=== PATIENT | female | born 1945 | race Two or more races ===

== ENCOUNTER 2017-01-10 23:52 | Inpatient (IN) | payer MEDICARE, BC ==
[~2017-01-10] VITALS: Ht 170.2 cm; Wt 44.7 kg
[2017-01-11 03:30] VITALS: BP 156/83
[2017-01-11] MEDS ORDERED: ACETAMINOPHEN 325 MG TABLET PO PRN (03:30)
[2017-01-11] MEDS ORDERED: LORAZEPAM 0.5 MG TABLET PO PRN (03:30)
[2017-01-11] MEDS ORDERED: MAG HYDROX/AL HYDROX/SIMETH 30 ML UDC PO PRN (03:30)
[2017-01-11] MEDS ORDERED: MAGNESIUM HYDROXIDE 30 ML UDC PO PRN (03:30)
[2017-01-11] MEDS ORDERED: PARO10TA3 PO (03:48)
[2017-01-11] MEDS ORDERED: LORA2TAB PO (03:48)
[2017-01-11] MEDS ORDERED: TEMA15CA PO (03:48)
[2017-01-11] MEDS ORDERED: TRAZ150T75 PO (03:48)
--- NOTE | 2017-01-11 04:00 | NUR ---
GPS LIFE ENRICHMENT SPECIALIST NOTES: ADMISSION OF A 71YO FEMALE FROM [facility] ON 5150 HOLD FOR DTS AND GD. PER HOLD, THE PATIENT STATED, "I WANTED TO BE PUT OUT.' PATIENT IS CONFUSED, DEPRESSED AND HAS POOR SLEEPING, EATING PATTERNS AND HAS BEEN NON COMPLIANT WITH MEDICATIONS. PATIENT CAME TO THE UNIT VIA GURNEY ESCORTED BY TWO EMS PERSONNEL. PATIENT THEN USHERED TO BED. UPON FACE TO FACE ASSESSMENT, PATIENT APPEARS TO BE CONFUSED, DISORGANIZED, ANXIOUS, DEPRESSED AND IS PHYSICALLY THIN WITH NOTICEABLY BONY PROMINENCE ON SOME BODY AREAS. PATIENT KEEP STATING "I TAKE 12 TABLETS OF MELATONIN AT HOME. FULL SKIN AND BODY ASSESSMENT DONE WITH SUMMER ALONSO AND KAT RAINES. PICTURES TAKEN AND PLACED IN THE CHART.TRIGGERED WOUND CONSULT FOR THE REDNESS ON BOTH LOWER EXTREMITIES AND SOME BONY PROMINENCE ON SOME BODY PARTS. REALITY ORIENTATION DONE. ORIENTATION TO UNIT, STAFF, CARE PLAN AND DOCTORS DONE. PATIENT IS UNABLE TO SIGN ADMISSION PAPERS. BELONGINGS AND CONTRABAND CHECKED. Q15 MIN CHECKS INITIATED. PATIENT HAS NO KNOWN MEDICAL HISTORY, PATIENT UNABLE TO PROVIDE A COMPREHENSIVE HEALTH HISTORY. DR. STEIN AND DR. DAVIS INFORMED OF THE SAID ADMISSION. MED RECON DONE. MRSA SWAB OF BOTH NARES DONE. WILL MONITOR PATIENT FOR MOOD AND BEHAVIOR. WILL DO CLOSE SUPERVISION. WILL ENDORSE PATIENT TO DAY SHIFT NURSE.
[2017-01-11 08:31] LABS: ALBUMIN 3.6 g/dL (3.4-5.0); BILIRUBIN,TOTAL 0.7 mg/dL (0.2-1.0); CALCIUM, SERUM 9.1 mg/dL (8.5-10.1); CREATININE 0.6 mg/dL (0.6-1.3); POTASSIUM 3.6 mmol/L (3.5-5.1); TOTAL PROTEIN, SERUM 6.5 g/dL (6.4-8.2)
[2017-01-11 08:38] VITALS: BP 146/81
--- NOTE | 2017-01-11 09:10 | NUR ---
WOUND CARE CONSULT: PATIENT SEEN, PATIENT SEATED ON EDGE OF BED WITH GOWN COVERING UP TO HER LEGS. PATIENT REFUSED SKIN ASSESSMENT, STATING "MY SKIN IS FINE" . PATIENT ENCOURAGED TO HAVE WOUND NURSE CHECK HER SKIN INDICATING SHE MAY NEED TO HAVE SOME LOTION OR CREAM ORDERED FOR HER. PATIENT STATED "NO, I DON'T WANT ANY CREAM ON MY BODY". PATIENT ALERT, AMBULATORY, CONTINENT, LISA 18. RECOMMENDATIONS TO KEEP SKIN AND DRY, MOISTURE PROTECTION WITH Z GUARD PRN ORDERED, MOISTURIZE AREAS OF DRY SKIN ON FEET SHOWN ON PHOTO. ALL DISCUSSED WITH NURSING STAFF. MD IN AGREEMENT WITH PLAN OF CARE. WOUND NURSE WILL FOLLOW UP PATIENT AT A LATER TIME WHEN PATIENT CONDITION PERMITS.
[2017-01-11] MEDS ORDERED: Z GUARD REMEDY 2 OZ OINT TP PRN (09:30)
[2017-01-11] MEDS: ARIPIPRAZOLE 2 MG TABLET PO SCH (13:25)
--- NOTE | 2017-01-11 16:06 | NUR ---
Initial discharge plan: [place]. [place] [address] [place] [address] and would like to return upon discharge. SW will follow up with MD and and will help form safe and proper discharge.
[2017-01-11 16:55] VITALS: BP 147/82
--- NOTE | 2017-01-11 18:00 | NUR ---
GPS RN PT. PRODUCING ALOT OF SALIVA AND CONTINUALLY SPITTING OUT SALIVA DR. GRIFFITHS NOTIFY AND SEEN PT . BY DR. GRIFFITHS , PLACED NEW ORDERS PROTONIX PO, 40 MG , SWALLOW EVALUATION , CHEST XRAY NEW ORDERS NOTED AND CARRIED OUT.
--- NOTE | 2017-01-11 18:54 | NUR ---
PT ANXIOUS RESTLESS NOTED AND ATIVAN 0.5 MG ADMINISTERED, WILL CONTINUE TO MONITOR
[2017-01-11 20:38] VITALS: BP 142/86
[2017-01-11] MEDS ORDERED: TEMAZEPAM 7.5 MG CAPSULE PO PRN (22:00)
[2017-01-11] MEDS ORDERED: MIRTAZAPINE 15 MG TABLET PO SCH (22:00)
[2017-01-12] MEDS ORDERED: PANTOPRAZOLE 40 MG TABLET.DR PO SCH (07:30)
[2017-01-12 08:00] VITALS: BP 129/71
[2017-01-12] MEDS: ARIPIPRAZOLE 2 MG TABLET PO SCH (08:34)
--- NOTE | 2017-01-12 11:30 | NUR ---
SW assisted the patient in calling her sister however sister's phone number was not available. SW instead attempted to contact 's number listed on the face sheet but he did not answer. Patient asked SW if she can use the [employer] phone to dial out and try different numbers. SW left patient with [employer] telephone.
--- NOTE | 2017-01-12 13:41 | NUR ---
PT. STANDING AT DESK BEHIND NURSE,S STATION.ATTEMPTING TO MAKE PHONE CALL.AFTER SUCCESSIVE ATTEMPTS STARTED TO CRY AND THEN THROWING SELF BACKWARDS ON TILE FLOOR.IMMEDIATELY NOTED BLOOD ON FLOOR FOLLOWED BY APPARENT SEIZING.RAPID RESPONSE CALLED.INITIALLY HOOKED UP TO BP MACHINE AND POX 70% THEN RESP. TX HERE AND APPLIED NON-REBREATHER AND O2 UP TO 100%.BP101/57,HEART RATE 57 BGL 94.RR 12.SKIN PALE,COOL,PT. [id number] FOR FEW MINUTES THEN CAME TO.HEART MONITOR INDICATES NSR RATE OF 57.GAUZE PRESSURE DRESSING WRAPPED TO BACK OF HEAD-APPARENT LACERATION.CT OF HEAD ORDERED, CALLED,ATIVAN 0.5 MG ORDERED AND GIVEN.JEWELRY CONSULTANT SUMMER TAVERAS ACCOMPANIED PT. TO CAT SCANNING.NEW RM. ASSIGNMENT-321.JEREMI STEPHENS AND ARUNA OGNZALES LVN WITNESSED FALL.
--- NOTE | 2017-01-12 13:41 | NUR ---
assist patient to dialling sister, because of phone calls not going trough , patient attentionaly throw self backwards to floor. pt has seizing, and bleeding posterior part of head, rapid response called.
[2017-01-12] MEDS ORDERED: LORAZEPAM INJ 2 MG/ML VIAL IV ONE (14:00)
--- NOTE | 2017-01-12 14:05 | NUR ---
administered ativan 0.5 mg/ml iv push, per md stat order x1 now. continued monitoring.
--- NOTE | 2017-01-12 14:15 | NUR ---
pt seen on the floor with the back of her head bleeding. Statement from witnesses stated that she became upset when she was unable contact her sister multiple times over the phone. she purposely threw herself on the floor injuring the back of her head. she then had a generalized seizure x 1 lasting approximately 30 - 40 seconds. after seizure pt became unresponsive for a few minutes, became pale, and cool but pt never stopped breathing. Rapid response called. Dr. Dahl paged and notified. orders' 0.5 mg of ativan IV x 1, CT head, and to transfer patient to medical floor. monitor shows sinus rhythm at 80-90 bpm. vital signs = BP at 101/57, respiration 12, heart rate 57 and room air saturation at high 70's, blood sugar at 91. pt placed on non rebreather mask increasing saturation at 97-100%. placed 22 gauge IV, wrap head wound with pressure dressing. Prior to leaving [facility], pt was back to her baseline, awake, alert, oriented x 1. pt unaware on what occurred. continues to make request to make a phone call with sister. pt left for CT. Called medical floor for report. report given to KAT Duran. pt going to room 321. DC patient to psych unit. Psychiatrist, field reporter, and residential real estate sales manager are all notified. Addendum: 01/12/17 at 1856 by JERMAINE CLINE RN Pt was already on the floor with blood on the back of her head when primary nurse first made contact with patient. Statement from KAT Romo and ROMULO Novoa who witness the start of the incident states that patient had been repeatedly been trying to make a phone calls to her sister but is unsuccessful at the nursing station. Pt had become frustrated, upset, even cried, and without warning, she had threw herself backwards hitting the back of her head against the floor. Upon impact she began to bleed out of her head. This is the part where the primary nurse witness the incident. pt on the floor awake, alert, verbally, but incoherently. Post fall, patient had a generalized seizure x 1 lasting approximately 30 - 40 seconds. Post-ictal, patient unresponsive for a few minutes, became pale, and cool but pt never stopped breathing nor became incontinent. Rapid response called. Dr. Dahl paged and notified. orders' 0.5 mg of Ativan IV x 1, CT head, and to transfer patient to medical floor. Monitor shows sinus rhythm at 80-90 bpm. vital signs = BP at 101/57, respiration 12, heart rate 57 and room air saturation at high 70's, blood sugar at 91. pt placed on non rebreather mask increasing saturation at 97-100%. placed 22 gauge IV, wrap head wound with pressure dressing. Prior to leaving [facility], pt was back to her baseline, awake, alert, oriented x 1. pt unaware on what occurred. continues to make request to make a phone call with sister. patient left for CT. Called medical floor for report. report given to KAT Duran. pt going to room 321. DC patient to psych unit. Psychiatrist, field reporter, and residential real estate sales manager are all notified.
--- NOTE | 2017-01-12 14:56 | NUR ---
original 5150 hold handed to receiving nurse.
[2017-01-12 15:15] VITALS: BP 92/44
--- NOTE | 2017-01-12 15:15 | NUR ---
RN NOTES RECEIVED PT FROM GPS STAFF VIA STEVE, PT AWAKE, SPEAKING INCOHERENTLY, NOT IN DISTRESS, ANXIOUS, WITH BLEEDING FROM THE HEAD AREA, ASSISTED TO BED, MADE COMFORTABLE, APPLIED ICE TO LACERATION AT THE OCCIPITAL AREA OF THE HEAD, NOTED WITH SWELLING IN THE AREA, VITAL SIGNS TAKEN AND RECORDED, RECEIVED PT'S CT SCAN OF THE HEAD RESULT FROM DR. TUNDE FRIAS INFORMED, WILL COME TO SEE PT, CONTINUOUSLY APPLIED ICE PACK AND PRESSURE TO LACERATION SITE.
--- NOTE | 2017-01-12 15:45 | NUR ---
RN NOTES PT'S BLEEDING CONTROLLED, CLEANSED AREA, DR. GRIFFITHS CAME TO SEE PT, 6 CHAD APPLIED BY MD TO LACERATION SITE AT BEDSIDE, NO FURTHER BLEEDING NOTED, RECEIVED ORDERS TO TRANSFER PT TO ICU BED 254 WITH ALL BELONGINGS, TRANSPORTED PT TO ICU VIA ALS, PT RECEIVED BY KAT BRYAN AT THE ICU, REPORT GIVEN, ASSISTED PT TO BED.
--- NOTE | 2017-01-12 16:15 | NUR ---
belongings collected and given to receiving nurse in 321
--- NOTE | 2017-01-12 17:20 | NUR ---
SW heard "rapid response" called to GPS. SW went to the unit and found pt. on the floor with nurses next to the patient. Pt. was bleeding as she hit her head hard on the floor. Pt. was then transferred to the third floor for further medical care.
[2017-01-12] MEDS ORDERED: PANT40TA4 PO (18:38)
[2017-01-12] MEDS ORDERED: ARIP2TAB11 PO (18:38)
[2017-01-12] MEDS ORDERED: MAG30ORA PO (18:38)
[2017-01-12] MEDS ORDERED: MAGN400O6 PO (18:38)
[2017-01-12] MEDS ORDERED: ACET325T53 PO (18:38)
[2017-01-12] MEDS ORDERED: MIRT15TA7 PO (18:38)
[2017-01-12] MEDS ORDERED: LORA0.5T PO (18:38)
[2017-01-12] MEDS ORDERED: ALLA266C2 TP (18:43)
[2017-01-12] MEDS ORDERED: TEMA15CA PO (18:43)
== END 2017-01-12 14:15 | disposition short-term general hospital (02) | DRG 885 ==
LOC: GPS 01-11 03:20
PROVIDERS: ADMIT Psychiatry & Neurology Psychiatry; ATTEND Family Medicine
DX: F33.3 Major depressive disorder, recurrent, severe with psychotic symptoms (principal); E87.1 Hypo-osmolality and hyponatremia; R45.851 Suicidal ideations; R13.10 Dysphagia, unspecified
CPT/HCPCS: 36415; 70450-TC; 71010-TC; 80048-TC; 80053-TC; 80061-TC; 82962-TC; 87081-TC; 92611-TC; J2060; Z7610

== ENCOUNTER 2017-01-12 15:09 | Inpatient (IN) | payer MEDICARE, BC ==
[2017-01-12] VITALS (28 sets, daily range): BP systolic 54–158; BP diastolic 27–120
[~2017-01-12] VITALS: Ht 170.2 cm; Wt 44.5 kg
[2017-01-12] MEDS ORDERED: LIDOCAINE 1%-EPI 1:100,000 20 ML VIAL IJ ONE (15:30)
--- NOTE | 2017-01-12 16:35 | NUR ---
Dr. Bourgeois gave an order to D/C hold.
[2017-01-12] MEDS ORDERED: Z GUARD REMEDY 2 OZ OINT TP PRN ×2 (16:47→17:00)
[2017-01-12] MEDS ORDERED: ARIPIPRAZOLE 2 MG TABLET PO SCH (16:47)
[2017-01-12] MEDS ORDERED: MAGNESIUM HYDROXIDE 30 ML UDC PO PRN ×2 (16:47→17:00)
[2017-01-12] MEDS ORDERED: MIRTAZAPINE 15 MG TABLET PO SCH (16:47)
[2017-01-12] MEDS ORDERED: PANTOPRAZOLE 40 MG TABLET.DR PO SCH (16:47)
[2017-01-12] MEDS ORDERED: LORAZEPAM 0.5 MG TABLET PO PRN (16:47)
[2017-01-12] MEDS ORDERED: ACETAMINOPHEN 325 MG TABLET PO PRN ×2 (16:47→17:00)
[2017-01-12] MEDS ORDERED: TEMAZEPAM 7.5 MG CAPSULE PO PRN (16:47)
[2017-01-12] MEDS ORDERED: MAG HYDROX/AL HYDROX/SIMETH 30 ML UDC PO PRN ×2 (16:47→17:00)
[2017-01-12] MEDS ORDERED: IV SET PRIMARY PUMP SET 1 EA INFUS.SET MC ONE ×2 (16:53→19:30)
[2017-01-12] MEDS ORDERED: IV NS 0.9% 1,000 ML ONE (16:53)
[2017-01-12] MEDS ORDERED: MORPHINE SULFATE INJ 2 MG/ML DISP.SYRIN IV PRN (17:00)
[2017-01-12] MEDS ORDERED: ZOLPIDEM TARTRATE 5 MG TABLET PO PRN (17:00)
[2017-01-12] MEDS ORDERED: ONDANSETRON HCL/PF 4 MG/2 ML VIAL IVP PRN (17:00)
--- NOTE | 2017-01-12 17:28 | NUR ---
MANAGER INTERNSHIP NOTE 1605: Admitted 71 y/o female patient, received from [facility] [place] via bed. With head multiple madison secondary to trauma related to fall from GPS. Witjh both elbows redness and skin tears, pictures taken and attached to chart. With RAC PIV intact. Placed new PIV on LFA g20. 1700: S/E by Dr. finch, said he will keep patient in ICU and he spoke with Dr. Latif and will doa nother CT in am and neuroSx will F/U. Stat labs ordered, will keep NPO. aware for meds to be held because of NPO for now. ordered for 2L of NS bolus for episode of SBO 50's. Will continue to monitor. 1730: Spoke with re: code status said he will be here around 1830 and will talk to patient's sister. For meantime, will remain Full code, family aware.
[2017-01-12 17:50] LABS: HEMATOCRIT 27 % (33-45); HEMOGLOBIN 9.2 g/dL (11.5-14.8); LYMPHOCYTES # (AUTO) 0.3 /CMM (0.8-4.8); LYMPHOCYTES % (AUTO) 2.5 % (20.0-44.0); MEAN CORPUSCULAR HEMOGLOBIN 33 PG (26.0-33.0); MEAN CORPUSCULAR HGB CONC 34 g/dl (31.0-36.0); MEAN CORPUSCULAR VOLUME 98 fL (82-100); MONOCYTES # (AUTO) 0.5 /CMM (0.1-1.30); MONOCYTES % (AUTO) 5.2 % (2.0-12.0); NEUTROPHILS # (AUTO) 9.5 /CMM (1.8-8.9); NEUTROPHILS % (AUTO) 92.3 % (43.0-81.0); PLATELET COUNT (AUTO) 126 /CMM (150-450); RDW COEFFICIENT OF VARIATION 14.2 (11.5-15.0); RED BLOOD CELL COUNT(AUTO) 2.79 MIL/uL (4.0-5.2); WHITE BLOOD COUNT (AUTO) 10.3 K/uL (4.3-11.0)
[2017-01-12] MEDS ORDERED: IV NS 0.9% 1,000 ML IV PRN (18:00)
[2017-01-12 18:04] LABS: CREATININE 1.3 mg/dL (0.6-1.3); MAGNESIUM 2.1 mg/dL (1.8-2.4); PHOSPHORUS 4.8 mg/dL (2.5-4.9); POTASSIUM 3.3 mmol/L (3.5-5.1)
[2017-01-12] MEDS ORDERED: SECONDARY IV SET 1 EA INFUS.SET MC ONE (18:10)
--- NOTE | 2017-01-12 18:13 | NUR ---
SUPERVISOR COREMAKER NOTE Spoke with Dr. Dahl via phone and given update with the patient, eyelids are more discolored now, patient is lethargic at this time, but still able to arouse with light and deep pain. Still mumbles at times, aware for the CBC result, BMP pending. SBP 100's and said to finish the 2 bolus of NS.
[2017-01-12] MEDS: LEVETIRACETAM (500MG) 500 MG in IV NS 0.9% 100 ML IV SCH (18:27)
[2017-01-12] MEDS ORDERED: ACET325T53 PO (18:38)
[2017-01-12] MEDS ORDERED: ARIP2TAB11 PO (18:38)
[2017-01-12] MEDS ORDERED: MIRT15TA7 PO (18:38)
[2017-01-12] MEDS ORDERED: MAGN400O6 PO (18:38)
[2017-01-12] MEDS ORDERED: PANT40TA4 PO (18:38)
[2017-01-12] MEDS ORDERED: MAG30ORA PO (18:38)
[2017-01-12] MEDS ORDERED: LORA0.5T PO (18:38)
[2017-01-12] MEDS ORDERED: ALLA266C2 TP (18:43)
[2017-01-12] MEDS ORDERED: TEMA15CA PO (18:43)
--- NOTE | 2017-01-12 18:52 | NUR ---
BAR AND FILLER ASSEMBLER NOTE Family( and patient's sister) at bedside, update given. Aware for the POC. Patient trying to talk to them but on mumbles. VSS at this time. VICKY kerr.
[2017-01-12] MEDS: POTASSIUM CL. PREMIX PERIPHER. 50 ML IV SCH ×2 (19:34→20:46)
--- NOTE | 2017-01-12 20:00 | NUR ---
CARDBOARD CUTTER - NOTES - PT RECEIVED IN BED FOR TRAUMA, FALL ON BACK OF HEAD, PT HAD CT OF HEAD DONE, NOTED WITH SUBARACHNOID HEMORRHAGE, SUBDURAL HEMORRHAGE AND SKULL FRACTURE, NEURO CHECK Q2H. PT IS AWAKE, ONLY ABLE TO MAKE INCOMPREHENSIBLE SOUNDS, NOTED W HEMATOMA AROUND RIGHT PERIORBITAL REGION, PT WITH 6 CHAD IN POSTERIOR HEAD. LEFT PUPIL 3-4 MM SLUGGISH UNEQUAL AND RIGHT PUPIL 2 MM BRISK. PT IS ON 2L NC, TOLERATING WELL. PT IS NPO, PT HAS F/C DRAINING ADEQUATE CLEAR YELLOW URINE. WILL CONTINUE TO MONITOR
[2017-01-12] MEDS: IV NS 0.9% 1,000 ML IV PRN (20:03)
--- NOTE | 2017-01-12 20:20 | NUR ---
CALLED DR JORDAN UPDATED ON PT PUPILS UNEQUAL, HE SAYS CALL DR WILLIAM, I CALLED DR WILLIAM HE SAID NO NEW ORDERS, SINCE PT IS STILL AWAKE, WILL JUST KEEP SEIZURE PRECAUTIONS AND DO CT IN AM
[2017-01-13] VITALS (42 sets, daily range): BP systolic 41–163; BP diastolic 19–93
[2017-01-13] MEDS ORDERED: ACETAMINOPHEN 650 MG/SUPP.RECT RC ONE (02:42)
[2017-01-13] MEDS: ACETAMINOPHEN 650 MG/SUPP.RECT RC PRN ×2 (02:46→08:04)
[2017-01-13 03:19] LABS: APPEARANCE,URINE SL CLOUDY (CLEAR); BILIRUBIN,URINE NEGATIVE (NEGATIVE); BLOOD, URINE 3+ Ery/uL (NEGATIVE); COLOR,URINE YELLOW (YELLOW); KETONES,URINE TRACE (NEGATIVE); LEUKOCYTE ESTERASE ,URINE NEGATIVE (NEGATIVE); NITRITE, URINE NEGATIVE (NEGATIVE); PROTEIN,URINE TRACE mg/dl (NEGATIVE); UGLUCOSE NEGATIVE (NEGATIVE); UROBILINOGEN,URINE 0.2 EU/dL (0.2)
[2017-01-13 03:21] LABS: BASOPHILS % (AUTO) 0.2 % (0.0-2.0); HEMATOCRIT 26 % (33-45); HEMOGLOBIN 8.7 g/dL (11.5-14.8); LYMPHOCYTES # (AUTO) 0.3 /CMM (0.8-4.8); LYMPHOCYTES % (AUTO) 11.1 % (20.0-44.0); MEAN CORPUSCULAR HEMOGLOBIN 33 PG (26.0-33.0); MEAN CORPUSCULAR HGB CONC 34 g/dl (31.0-36.0); MEAN CORPUSCULAR VOLUME 97 fL (82-100); MONOCYTES # (AUTO) 0.1 /CMM (0.1-1.30); MONOCYTES % (AUTO) 3.3 % (2.0-12.0); NEUTROPHILS # (AUTO) 1.9 /CMM (1.8-8.9); NEUTROPHILS % (AUTO) 85.4 % (43.0-81.0); PLATELET COUNT (AUTO) 97 /CMM (150-450); RED BLOOD CELL COUNT(AUTO) 2.66 MIL/uL (4.0-5.2); WHITE BLOOD COUNT (AUTO) 2.3 K/uL (4.3-11.0)
[2017-01-13 03:25] LABS: RBC,URINE 30-40 /HPF (0-2)
[2017-01-13 03:26] LABS: WBC,URINE 0-3 /HPF (0-3)
[2017-01-13 03:27] LABS: ADD URINE CULTURE NO; BACTERIA,URINE None seen /HPF (None Seen); MUCUS,URINE Few /LPF (None Seen); SQUAMOUS EPITHELIAL CELL,UR Few /HPF (None Seen)
[2017-01-13 03:37] LABS: ALBUMIN 3.4 g/dL (3.4-5.0); CALCIUM, SERUM 8.9 mg/dL (8.5-10.1); CREATININE 1.1 mg/dL (0.6-1.3); POTASSIUM 3.6 mmol/L (3.5-5.1)
[2017-01-13 04:24] LABS: BAND % (MANUAL) 25 % (0.0-5.0); EOSINOPHILS % (MANUAL) 1 % (0-4); LYMPHOCYTES % (MANUAL) 20 % (16-48); METAMYELOCYTES % 3 % (0-0); NEUTROPHILS % (MANUAL) 50 (42-76); REACTIVE LYMPHOCYTES 1 % (0-0)
[2017-01-13 04:25] LABS: HYPOCHROMASIA 1+; PLATELET ESTIMATE LARGE PLATELET SEEN
[2017-01-13 05:21] LABS: BILIRUBIN,DIRECT 0.2 mg/dL (0.0-0.2)
[2017-01-13 05:29] LABS: LACTIC ACID REFLEX 1.6 mmol/L (0.4-1.9)
--- NOTE | 2017-01-13 07:30 | NUR ---
RN INITIAL NOTES RECEIVED PT EYES OPEN, NON VERBAL. DOESN'T TRACK,DOESN'T FOLLOW COMMANDS. WITHDRAWS TO PAIN. ON 02 VIA MASK AT 10LPM. HEAD WITH CHAD. WILL MONITOR FOR BLEEDING. WILL KEEP CLEAN AND DRY. RFA G#20 AND LFA G#[address]ON NS AT 75ML/HR. FC IN PLACE. ON NEURO CHECK Q2. WILL MONITOR FOR ANY CHANGE IN LOC. ON SEIZURE PRECAUTIONS. WILL KEEP COMFORTABLE. WILL CONTINUE TO MONITOR.
[2017-01-13] MEDS: LEVETIRACETAM (500MG) 500 MG in IV NS 0.9% 100 ML IV SCH (07:43)
[2017-01-13] MEDS ORDERED: BLOOD IV SET 1 EA INFUS.SET MC ONE (08:40)
[2017-01-13] MEDS ORDERED: IV NS 0.9% 250 ML IV ONE (08:40)
[2017-01-13] MEDS ORDERED: PANTOPRAZOLE 40 MG VIAL IV SCH (09:00)
--- NOTE | 2017-01-13 09:00 | NUR ---
RN NOTES SEEN AND EXAMINED BY . AWARE OF LAB RESULTS: HGB 8.7, HCT 26, PLATELET 97. NO ACTIVE BLEEDING NOTED ON HEAD, CHAD INTACT. SODIUM 140, POTASSIUM 3.6, BUN 26,CREA1.1,LACTIC ACID 1.6, CHLORIDE 105. WILL DO CT HEAD WO CONTRAST. AWAITING FOR DR. WILLIAM FOR NEUROSURGERY CONSULT. WILL MONITOR
[2017-01-13] MEDS: IV NS 0.9% 1,000 ML IV PRN (09:25)
--- NOTE | 2017-01-13 09:30 | NUR ---
RN NOTES SEEN AND EXAMINED BY . AWARE PT IS ON 02 AT 10LPM VIA MASK. 02 SAT 95-97%. PT NOTED TO BE TACHYPNEIC,RR 50-60S. HOB ELEVATED. ORDERED ABG, EEG AND CXR. NOTED AND CARRIED OUT.
[2017-01-13 10:00] LABS: ABG BASE EXCESS -2.3 mmol/L; ABG OXYGEN SATURATION 91.3 % (92.0-98.5); ABG PCO2 27.3 mmHg (35.0-45.0); ABG PH 7.488 (7.350-7.450); ABG PO2 62.3 mmHg (75.0-100.0); ABG TOTAL HEMOGLOBIN 9.5 G/dL (12.0-16.0); AaDO2 335.5 mmHg; COHb 0.3 % (0.5-1.5); MetHb 0.5 % (0.0-1.5); O2Hb 90.6 % (94.0-97.0); SITE, ABG Left Brachial; VENT MODE, BG 10L S/M
--- NOTE | 2017-01-13 10:20 | NUR ---
RN NOTES AWARE OF ABG RESULT. PT INTUBATED. ETT 7.5/28CM. ON [facility] WITH FF SETTINGS: AC12, VT 450, FI02 100%,PEEP+5. WILL MONITOR FOR ANY SIGNS OF RESPIRATORY DISTRESS. WILL DO ABG AFTER 1HR. WILL CONTINUE TO MONITOR. Addendum: 01/13/17 at 1151 by MIRIAM POP RN 1030 CALLED DORINA ( )[phone] NOTIFIED PT INTUBATED AND ON [facility] VENT. UPDATED REGARDING PT'S STATUS
--- NOTE | 2017-01-13 10:20 | NUR ---
RT PATIENT ORALLY INTUBATED BY ER DOCTOR ADRIENNE WITH A 7.5 ETT SECURED VIA ANCHOR AT 28CM MID LIP. BILAT BREATH SOUNDS HEARD. POSITIVE CO2 DETECTOR CHANGE NOTED. PATIENT PLACED ON VENTILATOR WITH SETTINGS GIVEN PER DR CHASE. VENT ALARMS CHECKED + AUDIBLE. CUFF PRESSURE CHECKED CHAR BELT OPERATOR. SX'D WITH SMALL AMTPALE SEMITHICK SECRETIONS. AMBU BAG AT BEDSIDE. C+S SAMPLE SENT TO LAB. Addendum: 01/13/17 at 1307 by MARIO FERRARI RT Amended: Links added.
--- NOTE | 2017-01-13 11:16 | NUR ---
RN NOTES SEEN AND EXAMINED BY DR. MONTOYA.PT INTUBATED. ON [facility] VENT. AWAITING FOR HEAD CT WO CONTRAST AND EEG. WILL NOTIFY MD FOR RESULTS
[2017-01-13 11:41] LABS: ABG BASE EXCESS -6.7 mmol/L; ABG OXYGEN SATURATION 98.6 % (92.0-98.5); ABG PCO2 41.7 mmHg (35.0-45.0); ABG PH 7.287 (7.350-7.450); ABG PO2 248.4 mmHg (75.0-100.0); ABG TOTAL HEMOGLOBIN 8.7 G/dL (12.0-16.0); AaDO2 422.9 mmHg; COHb 0.3 % (0.5-1.5); MetHb 0.7 % (0.0-1.5); O2Hb 97.6 % (94.0-97.0); PEEP,BG 5 cm H2O; SITE, ABG Left Radial; VT, ABG 450 mL
--- NOTE | 2017-01-13 11:55 | NUR ---
RN NOTES AWARE OF ABF RESULT 1 HR AFTER INTUBATION. MD ORDERED TO CHANGE VENT SETTINGS: TV TO 500 AND FI02 TO 60%. NOTED AND CARRIED OUT. WILL MONITOR
[2017-01-13] MEDS ORDERED: ETOMIDATE 2 MG/ML VIAL IV ONE (12:07)
[2017-01-13] MEDS ORDERED: IV NS 0.9% 1,000 ML IV PRN (12:07)
[2017-01-13] MEDS ORDERED: SUCCINYLCHOLINE CHLORIDE 20 MG/ML VIAL IV ONE (12:07)
--- NOTE | 2017-01-13 12:10 | NUR ---
RN NOTES DR. GRIFFITHS NOTIFIED THAT PT INTUBATED. ON [facility] VENT. BP NOTED ON 50S,HR 100S. PT PLACED ON [place] POSITION. MD ORDERED NS 1L X2 BOLUS. PER MD, WILL SEE PT IN A BIT. ORDER NOTED AND CARRIED OUT. WILL CLOSELY MONITOR
--- NOTE | 2017-01-13 12:20 | NUR ---
RN NOTES DR. GRIFFITHS IN THE UNIT. AWARE OF PT'S CURRENT STATUS. ON NS 1L BOLUS FOR LOW BP. LATEST SBP 80S. PEEP REMOVED. NO RESPIRATORY DISTRESS NOTED. NO SIGNS OF PAIN NOTED. WILL CONTINUE TO MONITOR.
[2017-01-13] MEDS ORDERED: IV NS 0.9% 1,000 ML BAG IV ONE (12:30)
[2017-01-13] MEDS ORDERED: IV SET PRIMARY PUMP SET 1 EA INFUS.SET MC ONE ×3 (13:23→14:33)
[2017-01-13] MEDS ORDERED: VANCOMYCIN 1 GM in IV D5W 250 ML IV SCH (13:30)
[2017-01-13] MEDS ORDERED: NOREPINEPHRINE 8 MG in IV D5W 500 ML IV PRN (13:30)
--- NOTE | 2017-01-13 13:35 | NUR ---
RN NOTES NS BOLUS X2L DONE. SBP REMAINS ON 50S. NOTIFIED. ORDERED LEVOPHED. WILL TITRATE ACCORDINGLY.WILL CLOSELY MONITOR
--- NOTE | 2017-01-13 13:39 | NUR ---
PT NOT STABLE FOR CT SCAN, BP AT 54/34. RN WILL CALL WHEN READY FOR SCAN.
--- NOTE | 2017-01-13 13:40 | NUR ---
RN NOTES TRANSPORT FOR CT CAME. PT UNSTABLE TO GO TO CT AT THIS TIME. SBP ON 50S. LEVOPHED STARTED. WILL CALL ONCE PT'S BP MORE STABLE.
[2017-01-13] MEDS ORDERED: FEE PK DOSING 1 MIN EA MC ONE (13:50)
[2017-01-13] MEDS ORDERED: SECONDARY IV SET 1 EA INFUS.SET MC ONE (14:17)
--- NOTE | 2017-01-13 14:21 | NUR ---
WOUND CARE CONSULT: PATIENT SEEN AND SKIN ASSESSMENT NOT DONE DUE TO PATIENT UNSTABLE. ACCORDING TO NURSING STAFF, PATIENT'S BP FLUCTUATING, IN THE LOW 40'S, CURRENTLY BP AT 64/32, WV IN THE 60'S. INTUBATED PATIENT, IMMOBILE, LISA 10, FIRST STEP MATTRESS WAS ORDERED AND WILL BE PLACED WHEN AVAILABLE IN THE UNIT AND WHEN PATIENT CONDITION PERMITS. MD DR. TUNDE BAPTISTE IN TO PLACE PICC LINE FOR IV PRESSORS. RECOMMEND MOISTURE PROTECTION WITH Z GUARD PRN ORDERED, PRESSURE PREVENTION MEASURES, TURN AND REPOSITION EVERY 2 HRS PATIENT CONDITION PERMITS, OFFLOAD BOTH HEELS. ALL DISCUSSED WITH NURSING STAFF. MD IN AGREEMENT WITH PLAN OF CARE. WOUND CARE NURSE WILL FOLLOW UP PATIENT AT A LATER TIME WHEN PATIENT CONDITION PERMITS. Addendum: 01/13/17 at 1429 by MESSI EM WNDNU Amended: Links added.
[2017-01-13] MEDS ORDERED: PHENYLEPHRINE 40 MG in IV D5W 250 ML IV PRN (14:30)
[2017-01-13] MEDS ORDERED: VASOPRESSIN INJ 50 UNIT in IV D5W 497.5 ML IV PRN (14:30)
[2017-01-13] MEDS ORDERED: VANCOMYCIN 500 MG in IV D5W 100 ML IV SCH (15:00)
--- NOTE | 2017-01-13 15:00 | NUR ---
RT CODE BLUE CALLED ON PATIENT. CPR PERFORMED WITH PULSE REGAINED. PER NO MORE CPR TO BE DONE. PATIENT PLACED BACK ON [facility] VENT.
[2017-01-13] MEDS ORDERED: SODIUM BICARBONATE SYR 50 MEQ/50 ML DISP.SYRIN IV ONE (15:17)
[2017-01-13] MEDS ORDERED: EPINEPHRINE (1:10,000) SYRINGE 1 MG/10 ML DISP.SYRIN IVP ONE (15:17)
--- NOTE | 2017-01-13 15:25 | NUR ---
RN/ICU- PRONOUNCEMENT OF : PT CODE STATUS:DNR. PT. IS UNRESPONSIVE TO ANY FORM OF STIMULI. PUPILS ARE FIXED AND DILATED.APNEIC, RESPIRATIONS ARE ZERO. EKG ASYSTOLE X 2 LEADS.ABSENT PERIPHERAL PULSES AND HEART TONES. NO SIGNS OF LIFE. PT. PRONOUNCED . BY:MELANIE BARRY RN & MIRIAM POP RN BSN
--- NOTE | 2017-01-13 15:30 | NUR ---
RN NOTES 1400 NOTIFIED THAT PT'S BP STILL ON LOW 50S. GIVEN NS BOLUS X2L TOTAL. ON NS AT 125M/HR. STARTED ON LEVOPHED. PICC LINE ORDERED. AWAITING FOR PICC LINE TEAM TO RESPOND. 1420 CAME FOR PICC LINE INSERTION. AWARE THAT PT'S PUPIL NON REACTIVE. NO URINE OUTPUT. MD VERBALLY ORDERED ADD EL AND VASOPRESSIN. ORDERS NOTED AND CARRIED OUT. 143O EL STARTED AND VASO STARTED AT 1438. BP CLOSELY MONITORED. 1450 PICC LINE INSERTED ON LIJ TRIPLE LUMEN CATH. WITH GOOD VENOUS RETURN. STAT CXR ORDERED TO VERIFY PLACEMENT. CALLED RADIOLOGY FOR STAT ORDER. 1452 PT NOTED WITH PEA. CALLED BLUE CALLED. CPR AND AMBUBAGGING STARTED. DR. GRIFFITHS AT BEDSIDE. 1ST DOSE OF EPI GIVEN AT 1453, COMPRESSION AND AMBUBAGGING CONTINUOS. PULSE CHECK DONE AT 1454, STILL PEA, COMPRESSION AND AMBUBAGGING CONTINUED. 1456 2ND DOSE OF EPI GIVEN. ORDERED STAT CBC AND BMP. PULSE CHECK DONE AT 1457, STILL PEA. COMPRESSION AND AMBUBAGGING RESUMED. 1458 BICARB GIVEN. 1459 3RD DOSE OF EPI GIVEN. 1500 PULSE CHECK DONE, STILL PEA. COMPRESSION AND AMBUBAGGING RESUMED. 1502 4TH DOSE OF EPI GIVEN.1502 PULSE CHECK DONE.PT REMAINS PEA. AMBUBAGGING AND COMPRESSION CONTINUED. TALKING TO DORINA () ABOUT PT'S CURRENT CONDITION. 1505 NOTED WEAK THREADY PULSE. CODE STATUS CHANGED TO DNR. 1506 VITAL SIGNS NOTED P 136, R 19, BP 87/54. AT BEDSIDE. WILL CLOSELY MONITOR. 1525 PT DNR STATUS. NOTED FIXED AND DILATED PUPILS. ASYSTOLE ON EKG. NO PERIPHERAL PULSES NOTED. PRONOUNCED BY [address] CHASE AND [address] GRIFFITHS AT THE STATION AWARE. AT BEDSIDE AWARE. WILL PROCEED WITH POST MORTEM CARE.
--- NOTE | 2017-01-13 15:37 | NUR ---
MAT MAN NOTE: CALL MADE TO [employer] AND SPOKE TO PIERO CASE # [id number].
--- NOTE | 2017-01-13 16:30 | NUR ---
VARNISHER PLASTICOATER NOTE: CALL MADE TO [employer]. SUPERVISOR SULFURIC ACID PLANT CASE # [id number]. INFORMATION GIVEN TO SUPERVISOR SULFURIC ACID PLANT, AND WAS INFORMED TO RELEASE BODY TO [facility] AND A SUPERVISOR SULFURIC ACID PLANT ENROLLMENT SPECIALIST WILL GO TO MORTUARY. PATIENT'S DORINA GÓMEZ PROVIDED INFORMATION FOR [facility]. ALL PAPERWORK SIGNED.
[2017-01-13] MEDS ORDERED: PIPERACILLIN /TAZOBACTAM 2.25 G in IV D5W 50 ML IV SCH (17:00)
--- NOTE | 2017-01-13 17:47 | NUR ---
CIRCULATOR NOTE: PATIENT'S BODY RELEASED TO [facility] REP ART MARIYA. MORTUARY INFORMED THAT THIS IS A CORONERS CASE AND CASE NUMBER PROVIDED. PATIENT'S BELONGINGS RELEASED PATIENT'S DORINA GÓMEZ.
[2017-01-13] MEDS ORDERED: PIPERACILLIN /TAZOBACTAM 3.375 G in IV D5W 50 ML IV SCH (18:00)
== END 2017-01-13 17:43 | disposition expired | DRG 208 ==
LOC: MED 15:09 → ICU 15:22
PROVIDERS: ADMIT Family Medicine; ATTEND Psychiatry & Neurology Psychiatry
PROC: 05HN33Z Insertion of Infusion Device into Left Internal Jugular Vein, Percutaneous Approach (ICD-10-PCS; principal; 2017-01-13)
PROC: B544ZZA Ultrasonography of Left Jugular Veins, Guidance (ICD-10-PCS; 2017-01-13)
PROC: 5A1935Z Respiratory Ventilation, Less than 24 Consecutive Hours (ICD-10-PCS; 2017-01-13)
PROC: 0BH18EZ Insertion of Endotracheal Airway into Trachea, Via Natural or Artificial Opening Endoscopic (ICD-10-PCS; 2017-01-13)
DX: J96.01 Acute respiratory failure with hypoxia (principal); S06.6X0A Traumatic subarachnoid hemorrhage without loss of consciousness, initial encounter; G93.41 Metabolic encephalopathy; T79.4XXA Traumatic shock, initial encounter; S06.5X0A Traumatic subdural hemorrhage without loss of consciousness, initial encounter; R45.851 Suicidal ideations; D62 Acute posthemorrhagic anemia; J81.1 Chronic pulmonary edema; D61.818 Other pancytopenia; F32.3 Major depressive disorder, single episode, severe with psychotic features; S02.91XA Unspecified fracture of skull, initial encounter for closed fracture; S02.119A Unspecified fracture of occiput, initial encounter for closed fracture; W18.30XA Fall on same level, unspecified, initial encounter; Y93.9 Activity, unspecified; Y92.230 Patient room in hospital as the place of occurrence of the external cause; Y99.9 Unspecified external cause status; E87.6 Hypokalemia; S01.01XA Laceration without foreign body of scalp, initial encounter; R56.9 Unspecified convulsions; Z73.6 Limitation of activities due to disability; X58.XXXA Exposure to other specified factors, initial encounter
CPT/HCPCS: 36415; 36600; 71010-TC; 80048-TC; 80053-TC; 81000-TC; 82248-TC; 82803-TC; 83605-TC; 83735-TC; 84100-TC; 85025-TC; 87040-TC; 87081-TC; 87086-TC; 92950-TC; 94002-TC; 94799-TC; 95819-TC; A4606; A6403; J0171; J0330; J1953; J2270; J2370; J2543; J3370; J3480; J3490; J7030; J7050; J7060; Z7610